=== PATIENT | female | born 1960 | race Caucasian/White ===

== ENCOUNTER → 2017-08-05 | Outpatient (CLI) | payer OTHER | LOC: RAD 09:59 | DX: S82.432A Displaced oblique fracture of shaft of left fibula, initial encounter for closed fracture (principal); X58.XXXA Exposure to other specified factors, initial encounter; Y93.89 Activity, other specified; Y92.89 Other specified places as the place of occurrence of the external cause; Y99.8 Other external cause status ==

== ENCOUNTER 2018-01-09 16:10 | Inpatient (IN) | payer OTHER ==
[~2018-01-09] VITALS: Ht 160 cm; Wt 72.6 kg
--- NOTE | ~2018-01-09 | EKG ---
[address] [address] ELECTROCARDIOGRAM REPORT Name: DESIRE MONTES Room #: 416-[facility] IN M.R.#: [id number] Admission: 01/09/18 Attend Phys: Cong Munoz MD Discharge: 01/10/18 Date of : 62 Report #: [id number] THIS REPORT FOR: //name// [facility] ED Test Date: 2018-01-09 Test Time: 16:49:14 Pat Name: DESIRE MONTES Department: Room: [facility] Gender: F Instructional Design Specialist: JACY : 1960 Requested By: Sid Guerra Order Number: [id number] MD: Roe Holland Measurements Intervals [place] Rate: 106 P: 53 [place]: 145 QRS: 19 QRSD: 98 T: 80 QT: 358 QTc: 476 Interpretive Statements Sinus tachycardia Nonspecific ST segment abnormality No previous ECG available for comparison Electronically Signed On 01-10-2018 8:25:06 PASTE UP COPY CAMERA OPERATOR by Roe Holland [email or web address] <ELECTRONICALLY SIGNED> By: Roe Holland MD, [facility] 01/10/18 0825 [id number] 48 Roe Holland MD, FACC /EPI
--- NOTE | ~2018-01-09 | H ---
[facility] [place] [address] HISTORY AND PHYSICAL Name: SIMONDESIRE JO Room #: 416-P [facility] IN M.R.#: [id number] Admission: 01/09/18 Attend Phys: Cong Munoz MD Discharge: 01/10/18 Date of : 62 Report #: [id number] THIS REPORT FOR: //name// CC: Cong Fournier DATE OF SERVICE: 01/09/2018 CHIEF COMPLAINT: Abdominal pain and diarrhea. HISTORY OF PRESENT ILLNESS: The patient is a 57-year-old female who was seen by primary care doctor today for abdominal pain, diarrhea, nausea, and diminished p.o. intake. Symptoms have been going last few days. Her diet has been changed. The patient states that symptoms started gradually. Currently, she rates abdominal pain as 7/10, which is mostly on the left side. CT of the abdomen is consistent with left-sided colitis. In the emergency room, the patient's blood work revealed normal white count. Sodium is 127. Glucose is elevated at 219. After symptomatic treatment, the patient's symptoms are better controlled. PAST MEDICAL HISTORY: 1. Diabetes mellitus type 2, complicated with peripheral neuropathy. 2. History of CVA, lacunar, without residual deficit. 3. Hypertension. 4. Dyslipidemia. 5. Hypothyroidism. CURRENT MEDICATIONS: The patient is on metformin 1000 mg twice a day, Zocor 20 mg a day, Levemir 50 units at night, albuterol inhaler as needed, lisinopril 20 mg a day, levothyroxine 112 mcg a day, [place] 7.5/325 mg a day, and gabapentin 300 mg t.i.d. FAMILY HISTORY: Reviewed and not pertinent to the patient's current condition. SOCIAL HISTORY: The patient currently does not work. She smokes cigarettes. She does not drink alcohol. REVIEW OF SYSTEMS: As above in HPI section, all others negative. PHYSICAL EXAMINATION: GENERAL: The patient is a middle-aged female who looks older than her actual age. The patient looks uncomfortable due to her ongoing symptoms. VITAL SIGNS: Her blood pressure currently is 95/53, heart rate is between 99 [facility] [address] [place] [address] HISTORY AND PHYSICAL Name: DESIRE MONTES Room #: 416-P [facility]#: [id number] Admission: 01/09/18 Attend Phys: Cong Munoz MD Discharge: 01/10/18 Date of : 62 Report #: [id number] and 115, respiration is 8, temperature is 97.8, oxygen saturation is between 92% and 100%. HEENT: Pupils are equal. Eye movements are normal. Sclerae are anicteric. Oral mucosa is dry. Dentition is poor. NECK: The patient has no JVD. Carotid bruits are not appreciated. RESPIRATORY: Chest moves symmetrically with breathing. Lungs are clear to auscultation bilaterally. The patient's respiratory sounds are diminished. She has no wheezes or crackles. CARDIOVASCULAR: The patient has regular rhythm and rate. She has no murmurs, gallops, or rubs. GASTROINTESTINAL: Abdomen is slightly distended. Abdomen is diffusely tender, more on the left. Bowel sounds are present. Hepatomegaly or splenomegaly is not palpated. MUSCULOSKELETAL: The patient has no joint deformities. She has no edema, cyanosis or clubbing. Range of motion is normal. LABS: Basic metabolic profile shows sodium of 127. Other electrolytes normal. Creatinine is 1.3. Glucose is 119. Alkaline phosphatase slightly high at 126. ALT low. Albumin is 2.4 that is low. GFR is 42. CBC with differential is normal except the platelets of 449. Monocytes are slightly up at 11%. TSH is 7.96. Urinalysis is pending. CT scan of the abdomen reveals left-sided colitis. ASSESSMENT AND PLAN: 1. Colitis, involving left side of the colon, particularly splenic flexure. There is also involvement in the descending colon. The patient will be treated with antibiotics, namely Cipro and Flagyl. Symptomatic treatment will be continued. 2. Diarrhea a few days ago, resolving. Check stool for Clostridium difficile, as well as for enteric pathogens. 3. Hyponatremia, sodium level 127. Likely due to dehydration. Continue IV fluids. 4. Borderline hypotension. We are holding lisinopril. The patient is started on IV fluids. Condition will be monitored closely. 5. Elevated creatinine at 1.3, and low GFR at 46. Acute kidney injury? chronic kidney disease stage 3? We will reassess after hydration. Hold nephrotoxic agents. Holding lisinopril. 6. Diabetes mellitus type 2. The patient is on Levemir and metformin. We will continue Levemir, lower dose, given the patient's diminished oral intake. The patient takes 50 units of Levemir at home. We will treat the patient with 35 units. Metformin is held for the time being. Sliding scale insulin before meals. The patient will be on clear liquid diet for now. 7. Elevated TSH at 7.9. The patient is on levothyroxine 112 mcg a day. Noncompliance? Continue current dose now and levothyroxine can be adjusted as [facility] [address] [place] [address] HISTORY AND PHYSICAL Name: DESIRE MONTES GENE Room #: 416-P [facility] IN ..#: [id number] Admission: 01/09/18 Attend Phys: Cong Munoz MD Discharge: 01/10/18 Date of : 62 Report #: [id number] an outpatient. 8. Deep venous thrombosis prophylaxis. SubQ [employer]. <ELECTRONICALLY SIGNED> By: Cong Munoz MD 01/13/18 1410 1801 1833 Cong Munoz MD /nt
--- NOTE | ~2018-01-09 | D ---
[facility] [place] [address] DISCHARGE SUMMARY Name: SIMONLAVELLESunny MILLS Room #: 416-P [facility] IN M.R.#: [id number] Admission: 01/09/18 Attend Phys: Cong Munoz MD Discharge: 01/10/18 Date of : 62 Report #: [id number] THIS REPORT FOR: //name// CC: Cong Wildermez DATE OF SERVICE: 01/10/2018 The patient left AMA on 01/10/2018. HISTORY OF PRESENT ILLNESS: The patient is a 57-year-old female who was admitted to the hospital for colitis. Please refer to the admission H and P for details. HOSPITALIZATION COURSE: The patient was hospitalized for colitis. She was started on antibiotics, and appropriate treatment. Before I made rounds this morning, I was informed by the nursing staff that the patient left AMA. <ELECTRONICALLY SIGNED> By: Cong Muonz MD 01/13/18 1410 0830 0837 Cong Munoz MD /nt
[2018-01-09 16:11] VITALS: BP 95/53
[2018-01-09 16:40] LABS: ABSOLUTE NEUTROPHILS 8.2 thou/uL (1.4-8.2); BASOPHILS 0.3 % (0.0-2.0); EOSINOPHILS 0.6 % (0.0-3.0); HEMATOCRIT 38.3 % (37.0-47.0); HEMOGLOBIN 12.9 gm/dL (12.0-15.0); LYMPHOCYTES 7.4 % (24.0-44.0); MCH 26.2 pg (26.0-34.0); MCHC 33.8 g/dL (28.0-37.0); MCV 77.7 fL (80.0-100.0); MONOCYTES 11.7 % (1.0-8.0); PLATELET COUNT 449 thou/uL (150-400); RBC 4.93 mil/uL (4.20-5.00); RDW 16.3 % (10.5-14.5); WBC 10.3 thou/uL (4.0-11.0)
[2018-01-09 16:54] LABS: ANION GAP 13 mmol/L (7-16); BUN 29 mg/dL (7-18); CALCIUM 9.2 mg/dL (8.5-10.1); CHLORIDE 92 mmol/L (98-107); CO2 22 mmol/L (21-32); CREATININE 1.3 mg/dL (0.6-1.0); GLUCOSE 219 mg/dL (74-106); POTASSIUM 3.8 mmol/L (3.5-5.1); SODIUM 127 mmol/L (136-145)
[2018-01-09 17:00] LABS: ALBUMIN 2.4 g/dL (3.4-5.0); DIRECT BILIRUBIN < 0.1 mg/dL (<0.1-0.3); LIPASE 148 U/L (73-393); SGOT 15 U/L (15-37); SGPT 16 U/L (30-65); TOTAL BILIRUBIN 0.2 mg/dL (<0.1-1.0); TOTAL PROTEIN 7.1 g/dL (6.4-8.2)
[2018-01-09 17:41] VITALS: BP 90/48
[2018-01-09 17:54] LABS: URINE BILIRUBIN NEGATIVE (Negative); URINE BLOOD NEGATIVE (Negative); URINE CLARITY CLEAR; URINE COLOR YELLOW; URINE GLUCOSE-RANDOM* NEGATIVE (Negative); URINE KETONES NEGATIVE (Negative); URINE LEUKOCYTES NEGATIVE (Negative); URINE NITRITE NEGATIVE (Negative); URINE PROTEIN (DIPSTICK) NEGATIVE (Negative); URINE SPECIFIC GRAVITY 1.015 (1.005-1.035); URINE UROBILINOGEN 0.2 E.U./dl (0.2-1.0)
[2018-01-09 18:36] VITALS: BP 100/54
[2018-01-09 20:00] VITALS: BP 102/57
[2018-01-09] MEDS ORDERED: ZOCOR20 MG PO (20:31)
[2018-01-09] MEDS ORDERED: LISINOPRIL20 MG PO (20:32)
[2018-01-09] MEDS ORDERED: LEVOTHYROXINE112 MCG PO (20:33)
[2018-01-09] MEDS ORDERED: NEURONTIN 300300 M1 PO (20:35)
[2018-01-09] MEDS ORDERED: METFORMIN HCL500 MG PO (20:36)
[2018-01-09] MEDS ORDERED: XANAX 0.5 MG0.5 MG PO (20:38)
[2018-01-09] MEDS ORDERED: LISINOPRIL10 MG PO (20:40)
[2018-01-09] MEDS ORDERED: NORCO 10-325 T1 EACH PO (20:42)
[2018-01-09] MEDS ORDERED: ASPIRIN325 PO (20:47)
[2018-01-10 01:09] LABS: GLYCOHEMOGLOBIN (HGB A1C) 7.9 % (4.8-5.6)
[2018-01-10 04:00] VITALS: BP 110/61
[2018-01-10 04:57] LABS: HEMATOCRIT 31.8 % (37.0-47.0); MCHC 32.8 g/dL (28.0-37.0); MCV 79.1 fL (80.0-100.0); RBC 4.02 mil/uL (4.20-5.00); RDW 16.2 % (10.5-14.5); WBC 7.2 thou/uL (4.0-11.0)
[2018-01-10 05:02] LABS: CALCIUM 7.7 mg/dL (8.5-10.1); CREATININE 0.9 mg/dL (0.6-1.0); POTASSIUM 3.9 mmol/L (3.5-5.1)
[2018-01-10 05:08] LABS: HEMOGLOBIN 10.4 gm/dL (12.0-15.0); PLATELET COUNT 357 thou/uL (150-400)
[2018-01-10 07:17] LABS: ABSOLUTE NEUTROPHILS 5.2 thou/uL (1.4-8.2)
[2018-01-10 07:19] LABS: ANISOCYTOSIS 1+; BURR CELLS OCCASIONAL; POLYCHROMASIA 1+; SCHISTOCYTES OCCASIONAL
[2018-01-10 07:43] VITALS: BP 101/55
== END 2018-01-10 08:18 | disposition left against medical advice (07) | DRG 871 ==
LOC: ER 16:10 → EROBS 17:23 → 4N 18:02
PROVIDERS: Internal Medicine Endocrinology, Diabetes & Metabolism; Nurse Practitioner
DX: A41.9 Sepsis, unspecified organism (principal); R65.21 Severe sepsis with septic shock; E87.1 Hypo-osmolality and hyponatremia; I10 Essential (primary) hypertension; E11.9 Type 2 diabetes mellitus without complications; M79.7 Fibromyalgia; E03.9 Hypothyroidism, unspecified; E78.5 Hyperlipidemia, unspecified; F17.210 Nicotine dependence, cigarettes, uncomplicated; K52.9 Noninfective gastroenteritis and colitis, unspecified; Z53.21 Procedure and treatment not carried out due to patient leaving prior to being seen by health care provider; E11.40 Type 2 diabetes mellitus with diabetic neuropathy, unspecified; Z86.73 Personal history of transient ischemic attack (TIA), and cerebral infarction without residual deficits; Z79.899 Other long term (current) drug therapy; Z79.82 Long term (current) use of aspirin
CPT/HCPCS: 10091

== ENCOUNTER 2018-08-18 18:31 | Emergency (ER) | payer OTHER ==
[~2018-08-18] VITALS: Ht 154.9 cm; Wt 64.4 kg
--- NOTE | ~2018-08-18 | EKG ---
[address] [address] ELECTROCARDIOGRAM REPORT Name: DESIRE MONTES [id number] Admission: 08/18/18 Attend Phys: Discharge: 08/18/18 Date of : 62 Report #: [id number] THIS REPORT FOR: //name// [facility] ED Test Date: 2018-08-18 Test Time: 19:04:11 Pat Name: DESIRE MONTES Department: Room: Gender: F Hospitalist Nocturnist Physician: CHARU : 1960 Requested By: Funmilayo Mccurdy Order Number: [id number] MD: William Biswas Measurements Intervals [place] Rate: 81 P: 66 [place]: 152 QRS: 49 QRSD: 88 T: 70 QT: 376 QTc: 437 Interpretive Statements Sinus rhythm Probable left atrial enlargement Anteroseptal infarct, old Compared to ECG 01/09/2018 16:49:14 Myocardial infarct finding now present Sinus tachycardia no longer present ST (T wave) deviation no longer present Electronically Signed On 08-19-2018 9:54:21 CDT by William Biswas [email or web address] <ELECTRONICALLY SIGNED> By: William Biswas MD 08/19/18 0954 1904 William Biswas MD /EPI
[~2018-08-18 18:31] MED LIST: ASPIRIN325 PO; LEVOTHYROXINE112 MCG PO; LISINOPRIL10 MG PO; LISINOPRIL20 MG PO; METFORMIN HCL500 MG PO; NEURONTIN 300300 M1 PO; NORCO 10-325 T1 EACH PO; XANAX 0.5 MG0.5 MG PO; ZOCOR20 MG PO
[2018-08-18 19:41] LABS: ABSOLUTE NEUTROPHILS 5.4 thou/uL (1.4-8.2); BASOPHILS 0.8 % (0.0-2.0); EOSINOPHILS 0.4 % (0.0-3.0); HEMATOCRIT 38.2 % (37.0-47.0); HEMOGLOBIN 13.2 gm/dL (12.0-15.0); MCH 26.8 pg (26.0-34.0); MCHC 34.5 g/dL (28.0-37.0); MCV 77.8 fL (80.0-100.0); MONOCYTES 6.7 % (1.0-8.0); PLATELET COUNT 350 thou/uL (150-400); POLYS 66.1 % (36.0-66.0); RBC 4.91 mil/uL (4.20-5.00); RDW 18.6 % (10.5-14.5); WBC 8.1 thou/uL (4.0-11.0)
[2018-08-18 19:51] LABS: CREATININE 0.6 mg/dL (0.6-1.0); POTASSIUM 3.8 mmol/L (3.5-5.1)
[2018-08-18 19:54] LABS: APTT 29.2 Seconds (24.5-32.8); PROTIME 9.8 Seconds (9.3-11.4)
[2018-08-18 21:12] LABS: URINE BILIRUBIN NEGATIVE (Negative); URINE BLOOD NEGATIVE (Negative); URINE CLARITY CLEAR; URINE COLOR YELLOW; URINE GLUCOSE-RANDOM* NEGATIVE (Negative); URINE KETONES NEGATIVE (Negative); URINE LEUKOCYTES NEGATIVE (Negative); URINE NITRITE NEGATIVE (Negative); URINE PROTEIN (DIPSTICK) NEGATIVE (Negative); URINE SPECIFIC GRAVITY <= 1.005 (1.005-1.035); URINE UROBILINOGEN 0.2 E.U./dl (0.2-1.0)
[2018-08-18] MEDS ORDERED: PLAVIX 75 MG TA75 M1 PO (22:47)
== END 2018-08-18 23:11 | disposition left against medical advice (07) ==
LOC: ER 18:31
PROVIDERS: Emergency Medicine
DX: G45.9 Transient cerebral ischemic attack, unspecified (principal); E11.40 Type 2 diabetes mellitus with diabetic neuropathy, unspecified; I10 Essential (primary) hypertension; E78.5 Hyperlipidemia, unspecified; E03.9 Hypothyroidism, unspecified; F17.210 Nicotine dependence, cigarettes, uncomplicated; Z79.899 Other long term (current) drug therapy